=== PATIENT | male | born 1970 | race African-American/Black ===

== ENCOUNTER 2022-03-19 10:40 | Inpatient (IN) ==
[2022-03-19] MEDS ORDERED: MORPHINE 2 MG/1 ML SYRINGE ONE ×2 (11:15)
[2022-03-19] MEDS ORDERED: NITROGLYCERIN 2% OINT 1 INCH/GM PACK TOP ONE (11:16)
[2022-03-19] MEDS ORDERED: MORPHINE 2 MG/1 ML SYRINGE IV STA (11:20)
[2022-03-19] MEDS ORDERED: NITROGLYCERIN DRIP 50 MG/250 ML BOTTLE IV ONE (11:20)
[2022-03-19] MEDS ORDERED: NITROGLYCERIN DRIP 50 MG/250 ML BOTTLE IV SCH (11:30)
[2022-03-19 11:47] LABS: Basophils % 0.2 % (0.0-0.8); Eosinophils % 0.2 % (0.00-10.9); Hematocrit 39.7 VOL% (42.0-52.0); Hemoglobin 12.1 GM/DL (14.0-18.0); Immature Granulocytes % 0.5 %; Immature Granulocytes Absolute 0.03 #; Lymphocytes % 17.4 % (21.2-54.2); Mean Corpuscular HGB Conc 30.5 GM/DL (32-36); Mean Corpuscular Volume 93.6 FL (87-102); Mean Platelet Volume 10.3 FL (9.6-12.0); Monocytes # 0.4 10*3/uL (0.11-0.8); Monocytes % 6.2 % (1.7-12.7); NRBC # 0.02 10*3/uL; Neutrophils % 75.5 % (38.7-73.9); Platelet Count 251 T/CUMM (130-400); Red Blood Count 4.24 MC/CUMM (3.8-5.5); Red Cell Distribution Width 18.7 % (9.3-17.3); White Blood Count 5.6 T/CUMM (4-12)
[2022-03-19 12:06] LABS: Albumin 3.7 G/DL (3.4-5.0); Bilirubin,Total 0.7 MG/DL (0.20-1.00); Osmolality,Calculated 311.5 MOS/KG (273-304); Potassium 5.3 MMOL/L (3.5-5.1); Total Protein 7.6 G/DL (6.4-8.2)
[2022-03-19] MEDS ORDERED: hydrALAZINE 20 MG/1 ML VIAL ONE (12:11)
[2022-03-19] MEDS ORDERED: hydrALAZINE 20 MG/1 ML VIAL IV STA (12:13)
[2022-03-19] MEDS ORDERED: MORPHINE 2 MG/1 ML SYRINGE IV PRN (12:54)
[2022-03-19] MEDS ORDERED: ALBUTEROL 2.5 MG/3 ML NEB RESP TX PRN (12:54)
[2022-03-19] MEDS ORDERED: ONDANSETRON 4 MG/2 ML VIAL IV PRN (12:54)
[2022-03-19] MEDS ORDERED: PANTOPRAZOLE 40 MG VIAL IV SCH (13:00)
[2022-03-19 13:25] LABS: Albumin 3.7 G/DL (3.4-5.0); Bilirubin,Total 0.7 MG/DL (0.20-1.00); Calcium 8.7 MG/DL (8.5-10.1); Osmolality,Calculated 312.4 MOS/KG (273-304); Potassium 5.4 MMOL/L (3.5-5.1); Total Protein 7.2 G/DL (6.4-8.2)
[2022-03-19 13:32] LABS: Arterial Base Excess iSTAT -4 MMOL/L (-2.5-2.5); Arterial O2 Saturation iSTAT 94 % (95-100); Arterial PCO2 iSTAT 62 MM HG (35-48); Arterial PO2 iSTAT 90 MM HG (80-95); Arterial Total CO2 iSTAT 27 MMO/L (23-27)
[2022-03-19] MEDS ORDERED: METOPROLOL TARTRATE 5 MG/5 ML VIAL IV PRN (13:45)
[2022-03-19 17:13] VITALS: BP 186/113
[2022-03-19] MEDS: VALSARTAN 160 MG TABLET PO SCH (17:46)
[2022-03-19] MEDS: carvediloL 25 MG TABLET PO SCH ×2 (17:47→20:16)
[2022-03-19 19:55] LABS: Arterial Base Excess iSTAT 2 MMOL/L (-2.5-2.5); Arterial Bicarbonate iSTAT 28.2 MMOL/L (20-26); Arterial O2 Saturation iSTAT 98 % (95-100); Arterial PCO2 iSTAT 49 MM HG (35-48); Arterial PO2 iSTAT 106 MM HG (80-95); Arterial Total CO2 iSTAT 30 MMO/L (23-27); Arterial pH iSTAT 7.369 (7.35-7.45)
[2022-03-19] MEDS ORDERED: ACETAMINOPHEN 325 MG TABLET PO PRN (23:36)
[2022-03-20] MEDS ORDERED: MELATONIN 3 MG TABLET PO PRN (00:07)
[2022-03-20] MEDS: DEXAMETHASONE 4 MG/1 ML VIAL IV SCH ×2 (00:48→08:53)
[2022-03-20] MEDS: CHOLECALCIFEROL 1,000 UNIT TABLET PO SCH ×2 (01:00→08:50)
[2022-03-20] MEDS: FAMOTIDINE 20 MG TABLET PO SCH ×2 (01:00→08:51)
[2022-03-20] MEDS: ASCORBIC ACID 500 MG TABLET PO SCH ×2 (01:00→08:51)
[2022-03-20] MEDS: CETIRIZINE 10 MG TABLET PO SCH ×2 (01:00→08:50)
[2022-03-20] MEDS: ZINC GLUCONATE 50 MG TABLET PO SCH ×2 (01:00→08:50)
[2022-03-20] MEDS ORDERED: AZITHROMYCIN 250 MG TABLET PO SCH (01:30)
[2022-03-20] MEDS: HEPARIN 5,000 UNIT/1 ML VIAL SUBCUT SCH ×2 (01:35→08:52)
[2022-03-20 04:05] LABS: Arterial Base Excess iSTAT 0 MMOL/L (-2.5-2.5); Arterial Bicarbonate iSTAT 26.7 MMOL/L (20-26); Arterial O2 Saturation iSTAT 100 % (95-100); Arterial PCO2 iSTAT 49 MM HG (35-48); Arterial PO2 iSTAT 236 MM HG (80-95); Arterial Total CO2 iSTAT 28 MMO/L (23-27); Arterial pH iSTAT 7.342 (7.35-7.45)
[2022-03-20 05:35] LABS: Hematocrit 34.6 VOL% (42.0-52.0); Hemoglobin 10.5 GM/DL (14.0-18.0); Immature Granulocytes % 0.6 %; Immature Granulocytes Absolute 0.03 #; Lymphocytes # 0.2 10*3/uL (1.4-4.0); Lymphocytes % 3.6 % (21.2-54.2); Mean Corpuscular HGB Conc 30.3 GM/DL (32-36); Mean Platelet Volume 10.5 FL (9.6-12.0); Monocytes # 0.2 10*3/uL (0.11-0.8); Monocytes % 4.5 % (1.7-12.7); Neutrophils % 91.3 % (38.7-73.9); Platelet Count 181 T/CUMM (130-400); Red Blood Count 3.72 MC/CUMM (3.8-5.5); Red Cell Distribution Width 18.3 % (9.3-17.3); White Blood Count 4.9 T/CUMM (4-12)
[2022-03-20 05:53] LABS: Calcium 8.3 MG/DL (8.5-10.1); Potassium 5.1 MMOL/L (3.5-5.1)
[2022-03-20 05:58] LABS: Band Neutrophils 3 % (0-10); Hypochromia Slight; Lymphocytes 1 % (20-55); Microcytosis Slight; Platelet Estimate Adequate; Total Cells Counted 100
[2022-03-20] MEDS: VALSARTAN 160 MG TABLET PO SCH (08:51)
[2022-03-20] MEDS: carvediloL 25 MG TABLET PO SCH (08:51)
== END 2022-03-20 12:00 | disposition home or self-care (01) | DRG 640 ==
LOC: N.ED 10:40 → N.ICU 13:54
PROVIDERS: ADMIT Internal Medicine; ATTEND Internal Medicine